=== PATIENT | male | born 1985 | race Caucasian/White ===

== ENCOUNTER 2018-10-09 14:04 | Emergency (ER) | payer OTHER ==
--- NOTE | 2018-10-09 14:31 | ED.PDOC ---
History of Present Illness - General Chief Complaint: Abdominal Pain Stated Complaint: abdominal pain Time Seen by Provider: 10/09/18 14:27 Information Source: patient Exam Limitations: no limitations - History of Present Illness Initial Comments: Fernando Graff 33 y/o male came to ER with abdominal cramps ,nausea/vomiting since this morning and unable to keep anything down since it started this am.He has history of Crohns disease had been on Humira for several years but quit using it a year ago.Also no follow up with GI specialist since transfer to [place].No diarrhea,no hematemesis,no blood in stool. Abdominal Pain Onset Location: other - lower abdomen Pain Radiation: no radiation Quality: intermittent Timing/Duration: 4-6 hours, intermittent Improving Factors: nothing Worsening Factors: eating Associated Symptoms: other - see hpi Review of Systems - Review of Systems Constitutional: States: no symptoms reported EENTM: States: no symptoms reported Respiratory: States: no symptoms reported Cardiology: States: no symptoms reported Gastrointestinal/Abdominal: States: see HPI Genitourinary: States: no symptoms reported Musculoskeletal: States: no symptoms reported All other Systems: Reviewed and Negative, No Change from Baseline Past Medical History (General) - Patient Medical History Hx Other PMH: Yes - Crohns disease Surgical History: appendectomy, other - bowel resection 12 years ago - Social History Hx Tobacco Use: Yes Years Tobacco Use: 10 Family Medical History - Family History Mother Hx Family Cancer: Yes Hx Family;Other: Rheumatoid Arthitis Father Hx Family Cancer: Yes Physical Exam - Physical Exam General Appearance: Alert, No apparent distress, Other - in pain Eyes, Ears, Nose, Throat Exam: normal ENT inspection Neck: non-tender, supple, normal inspection Respiratory: chest non-tender, lungs clear, normal breath sounds Cardiovascular/Chest: normal peripheral pulses, regular rate, rhythm, no murmur Peripheral Pulses: No deficit Gastrointestinal/Abdominal: normal bowel sounds, no organomegaly, tenderness - lower abdomen,+ guarding Back Exam: no CVA tenderness, no vertebral tenderness Extremity: no pedal edema, no calf tenderness Neurologic: alert, oriented x 3 Skin Exam: normal color, warm/dry Progress - Progress Progress: 10/09/18 14:49 Vital Signs - 8 hr 10/09/18 14:26 Temperature 96.7 F L Pulse Rate [ 87 Right Radial] Respiratory 20 Rate Blood Pressure 128/107 [Left Arm] O2 Sat by Pulse 99 Oximetry 10/09/18 17:32 Discuss lab and /ct-abd/pelvis result with patient needing urgent medical attention;Initially -surgeon [facility] recommend to 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 - Results/Orders Results/Orders: 10/09/18 14:33 IV Care:Saline Lock per Protoc QSHIFT URINE DRUG SCREEN, 7 ASSAY Stat URINALYSIS Stat 10/09/18 17:06 Sodium Chloride 0.9% 1000ML [Ns 1000 ml] 1,000 ml IVS .QD cefOXitin SODIUM [Mefoxin] 2 gm Sodium Chl 0.9% 50Ml Min-Bag+ [NS 50ml MINI- BAG+] 50 ml IVPB ONCE 10/09/18 17:12 NG [Tube(s):Nasogastric,Insertion] PRN Laboratory Results - last 24 hr 10/09/18 10/09/18 14:25 14:45 WBC 9.0 RBC 5.12 Hgb 16.2 Hct 46.9 MCV 91.5 MCH 31.6 H MCHC 34.5 RDW 12.8 Plt Count 358 MPV 6.9 L Absolute Neuts (auto) 6.70 Absolute Lymphs (auto) 1.20 Absolute Monos (auto) 0.70 Absolute Eos (auto) 0.30 Absolute Basos (auto) 0.10 Neutrophils % 74.8 Lymphocytes % 13.1 L Monocytes % 7.9 Eosinophils % 3.5 Basophils % 0.7 PT 9.3 INR 0.93 PTT (SP) 26.1 Sodium 135 Potassium 3.5 L Chloride 101 Carbon Dioxide 24 Anion Gap 13.5 BUN 10 Creatinine 0.78 BUN/Creatinine Ratio 12.8 Random Glucose 94 Serum Osmolality 268.9 L Lactic Acid 1.3 Calcium 9.4 Magnesium 2.1 Total Bilirubin 0.7 Direct Bilirubin 0.1 Indirect Bilirubin 0.6 AST 32 ALT 34 Alkaline Phosphatase 79 Creatine Kinase 206 H* CK-MB (CK-2) 3.4 CK-MB (CK-2) % Not Reportable Troponin I < 0.02 Serum Total Protein 8.5 H Albumin 4.7 Lipase 51 - EKG/XRAY/CT XRAY: chest - no acute abnormalities noted CT Ordered: Yes - abd/p-distal SBO Departure - Departure Clinical Impression: SBO (small bowel obstruction) Abdominal pain Qualifiers: Abdominal location: lower abdomen, unspecified Qualified Code(s): R10.30 - Lower abdominal pain, unspecified Crohns disease Qualifiers: Gastrointestinal tract location: small intestine Digestive disease complication type: with intestinal obstruction Qualified Code(s): K50.012 - Crohn's disease of small intestine with intestinal obstruction Time of Disposition: 17:32 Disposition: Transfer to Hospital Condition: Fair Departure Forms: Patient Portal Self Enrollment Transfer to Outside Facility - Transfer Information Accepting Provider:: Dr. Crowe-GI specialist;Dr. 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
[2018-10-09] MEDS ORDERED: PROCHLORPERAZINE INJ 10 MG/2 ML VIAL IV ONE ×2 (14:33→17:11)
[2018-10-09] MEDS ORDERED: LACTATED RINGERS 1,000 ML IVS ONE (14:33)
[2018-10-09] MEDS ORDERED: MORPHINE SULFATE INJ 10 MG/ML VIAL IV ONE ×2 (14:33→17:11)
--- NOTE | 2018-10-09 15:26 | RAD ---
EXAM DESCRIPTION: Chest,1 View CLINICAL HISTORY: 33 years Male, abdominal pain COMPARISON: None. TECHNIQUE: AP portable chest. FINDINGS: Heart size is prominent with normal pulmonary vascularity. No consolidating infiltrate. No pulmonary mass or worrisome nodule. No pneumothorax or pleural effusion. Bones are unremarkable. IMPRESSION: No acute process is identified in the chest. Electronically signed by: Tacho Mathis MD 10/09/2018 3:25 PM WORLD LANGUAGE TEACHER
--- NOTE | 2018-10-09 16:05 | CT ---
EXAM DESCRIPTION: Abdoment/Pelvis w/o Contrast CLINICAL HISTORY: 33 years, Male, lower abdominal pain, history of Crohn's disease COMPARISON: None. TECHNIQUE: CT of the abdomen and pelvis is performed according to our non contrast protocol. FINDINGS: Conveyor System Operator film shows dilated small bowel loops in the midabdomen. The lung bases are clear. Liver, spleen, and pancreas are unremarkable. Adrenal glands appear normal. The right kidney is unremarkable. The left kidney is unremarkable. No renal stones or hydronephrosis. Dilated bowel loops are seen consistent with small bowel obstruction. Following the bowel distally, there is a thick-walled loop in the right lower quadrant which is narrow. This extends to level of anastomosis with surgical clips at the small bowel-right colon anastomotic point. Strandy increased density seen in the fat around the thick walled bowel loop. Proximal to the thick walled loop, a dilated loop is seen with milder wall thickening. This gradually transitions into dilated small bowel loops without bowel wall thickening. Findings are consistent with active Crohn's disease with partial obstruction of the small bowel. The colon is decompressed. In the pelvis, the appendix is surgically absent. No inflammation around the cecum or terminal ileum or sigmoid colon. No stones in the distal ureters or bladder. Low-density structure in the lower bladder centrally situated over the trigone region or urethral orifice measures 1 cm. Differential considerations would include invaginated cyst of the prostatic utricle, ureterocele or small balloon related to urethral catheter. No catheter is seen however. Correlate with sono findings. Rectal wall thickness is normal for degree of distention. No free fluid or mass in the pelvis. Prostate appears normal. No inguinal or lower pelvic adenopathy. 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 Coronal and sagittal reformatted images confirm the findings. IMPRESSION: Findings most consistent with Crohn's disease with partial small bowel obstruction. This exam was performed according to our departmental dose-optimization program, which includes automated exposure control, adjustment of the mA and/or kV according to patient size and/or use of iterative reconstruction technique. Total DLP equals 595.11 mGycm. Electronically signed by: Tacho Mathis MD 10/09/2018 4:03 PM WATCH PARTS INSPECTOR
[2018-10-09] MEDS ORDERED: methylPREDNISolone SODIUM SUC 125 MG/2 ML VIAL IV ONE (17:06)
[2018-10-09] MEDS ORDERED: SODIUM CHLORIDE 0.9% 1000ML 1,000 ML IVS PRN (17:06)
[2018-10-09] MEDS ORDERED: cefOXitin SODIUM 2 GM in SODIUM CHL 0.9% 50ML MIN-BAG+ 50 ML IVPB ONE (17:06)
[2018-10-09] MEDS ORDERED: cefOXitin SODIUM 2 GM INJ IVPB ONE (17:25)
[2018-10-09] MEDS ORDERED: SODIUM CHL 0.9% 50ML MIN-BAG+ 50 ML IVPB ONE (17:25)
[2018-10-09 18:10] VITALS: BP 130/80; TEMP 97.2; O2SAT 95
== END 2018-10-09 18:00 | disposition short-term general hospital (02) ==
LOC: ER 14:04
DX: K50.012 Crohn's disease of small intestine with intestinal obstruction (principal); Z90.49 Acquired absence of other specified parts of digestive tract; Z87.891 Personal history of nicotine dependence